=== PATIENT | female | born 1965 | race Two or more races ===

== ENCOUNTER 2018-06-13 13:01 | Emergency (ER) | payer OTHER ==
[2018-06-13 13:15] VITALS: BMI 31.1
--- NOTE | 2018-06-13 13:47 | PDOC ---
History of Present Illness - General Chief Complaint: Pain Stated Complaint: PAIN (PCP SENT) History Source: Patient Exam Limitations: No Limitations - History of Present Illness Initial Comments: 06/13/18 14:11 53 yo F with a hx of HTN, multiple abdominal surgeries (partial hysterectomy, 3x hernia repairs, BTL), and ovarian cysts presents to the emergency department from her PMD for RLQ pain for 2 weeks with acute worsening since yesterday. Per the patient, she states the pain has been on and off but became constant yesterday. Described as sharp, 7/10, non-radiating, without relief with motrin and tylenol, and has associative dysuria, lower back pain, and nausea. Denies the following: vaginal bleeding/discharge, fever/chills, SOB, diarrhea, hematochezia, melena, and leg pain/swelling. Pmhx: Refer to above Shx: Refer to above Meds: atenolol Allergies: NKDA Social: Denies tobacco, alcohol, and substance abuse Past History - Past Medical History Allergies/Adverse Reactions: Allergies Allergy/AdvReac Type Severity Reaction Status Date / Time No Known Allergies Allergy Verified 06/13/18 13:12 Home Medications: Ambulatory Orders Atenolol [Tenormin -] 25 mg PO BID 06/13/18 Ibuprofen 600 mg PO QID PRN #12 tablet 06/13/18 COPD: No HTN: Yes - Immunization History Immunization Up to Date: Yes - Suicide/Smoking/Psychosocial Hx Smoking History: Never smoked Review of Systems - Review of Systems Able to Perform ROS?: Yes Is the patient limited [place] proficient: No Constitutional: No: Chills, Diaphoresis, Fever, Weakness HEENTM: No: Recent change in vision, Ear Pain, Nose Pain, Throat Pain, Mouth Pain Respiratory: No: Cough, Shortness of Breath, SOB with Exertion, Hemoptysis Cardiac (ROS): No: Chest Pain, Lightheadedness, Palpitations, Syncope, Chest Tightness ABD/GI: Yes: Nausea, Abdominal cramping. No: Constipated, Diarrhea, Poor Appetite, Poor Fluid Intake, Rectal Bleeding, Vomiting, Indigestion, Tarry Stools : Yes: Dysuria. No: Flank Pain, Hematuria, Urgency Musculoskeletal: Yes: Back Pain. No: Joint Pain, Neck Pain Integumentary: No: Rash Neurological: No: Headache, Weakness, Ataxia Psychiatric: No: Stressors Endocrine: No: Unexplained Weight Gain Hematologic/Lymphatic: No: Anemia *Physical Exam - Vital Signs Last Vital Signs Temp Pulse Resp BP Pulse Ox 98.6 F 66 18 138/82 100 06/13/18 13:12 06/13/18 13:12 06/13/18 13:12 06/13/18 13:12 06/13/18 13:12 - Physical Exam General Appearance: Yes: Nourished, Appropriately Dressed, Obese. No: Apparent Distress HEENT: positive: EOMI, JOSE, Normal ENT Inspection, Normal Voice, Symmetrical, TMs Normal, Pharynx Normal, Hearing Grossly Normal. negative: Pale Conjunctivae , Scleral Icterus (R), Scleral Icterus (L), Muffled/Hoarse voice, Hearing Decreased Neck: positive: Trachea midline. negative: Tender, Lymphadenopathy (R), Lymphadenopathy (L), Tender lateral, Tender midline Respiratory/Chest: positive: Lungs Clear, Normal Breath Sounds. negative: Chest Tender, Respiratory Distress, Accessory Muscle Use, Crackles, Rales, Rhonchi, Stridor, Wheezing, Hyperresonant Cardiovascular: positive: Regular Rhythm, Regular Rate, S1, S2. negative: Systolic Murmur Gastrointestinal/Abdominal: positive: Normal Bowel Sounds, Tender (RLQ and LLQ tenderness. Negative referred pain and negative rebound tenderness. negative psoas sign), Flat, Soft. negative: Distended, Rebound Lymphatic: negative: Adenopathy Musculoskeletal: positive: Normal Inspection. negative: CVA Tenderness, CVA Tenderness (R), CVA Tenderness (L) Extremity: positive: Normal Capillary Refill, Normal Inspection, Normal Range of Motion. negative: Tender Integumentary: positive: Normal Color, Dry, Warm. negative: Rash, Swelling Neurologic: positive: wafer batter mixer II-XII NML intact, Fully Oriented, Alert, Normal Mood/ Affect, Normal Response, Motor Strength 5/5 Moderate Sedation - Procedure Monitoring Vital Signs: Procedure Monitoring Vital Signs Temperature 98.6 F 06/13/18 13:12 Pulse Rate 66 06/13/18 13:12 Respiratory Rate 18 06/13/18 13:12 Blood Pressure 138/82 06/13/18 13:12 O2 Sat by Pulse Oximetry (%) 100 06/13/18 13:12 ED Treatment Course - LABORATORY CBC & Chemistry Diagram: 06/13/18 14:30 06/13/18 14:30 Medical Decision Making - Medical Decision Making 53 yo F with a hx of HTN, multiple abdominal surgeries (partial hysterectomy, 3x hernia repairs, BTL), and ovarian cysts presents to the emergency department from her PMD for RLQ pain for 2 weeks with acute worsening since yesterday. Initial vitals; Initial Vital Signs Temp Pulse Resp BP Pulse Ox 98.6 F 66 18 138/82 100 06/13/18 13:12 06/13/18 13:12 06/13/18 13:12 06/13/18 13:12 06/13/18 13:12 Work up: ddx: appendicitis vs colitis vs constipation vs ovarian cyst rupture vs UTI, nephrolithiasis, pyelonephritis. patient was referred to ED by PMD for appendicitis evaluation. given the presentation on PE and hx, possibly could be due to appendicitis. will order the following labs: cbc, cmp, ua, urine culture, abdomen pelvis ct with IV/oral Laboratory Tests 06/13/18 06/13/18 06/13/18 14:30 14:30 14:30 WBC 6.8 RBC 4.76 Hgb 14.2 Hct 44.4 MCV 93.2 MCH 29.7 MCHC 31.9 L RDW 13.3 Plt Count 330 MPV 9.1 Absolute Neuts (auto) 3.5 Neutrophils % 50.7 Lymphocytes % 37.9 Monocytes % 7.5 Eosinophils % 2.7 Basophils % 1.2 Nucleated RBC % 0 Sodium 139 Potassium 5.0 Chloride 106 Carbon Dioxide 26 Anion Gap 8 BUN 12 Creatinine 0.8 Creat Clearance w eGFR > 60 Random Glucose 87 Calcium 9.2 Total Bilirubin 0.4 AST 39 H ALT 57 Alkaline Phosphatase 83 Total Protein 7.9 Albumin 4.3 Urine Color Straw Urine Appearance Clear Urine pH 5.0 Ur Specific Verdi 1.008 L Urine Protein Negative Urine Glucose (UA) Negative Urine Ketones Negative Urine Blood Negative Urine Nitrite Negative Urine Bilirubin Negative Urine Urobilinogen Negative Ur Leukocyte Esterase Negative treated with IV tylenol for pain. ct showed no acute pathologies. labs were within normal limits. patient was reassessed and had reduced pain in the RLQ. patient expressed wishes to be discharged. i explained to the patient the importance of the return precautions given that it could still develop into an appendicitis. patient understood and accepted the plan. I discussed the physical exam findings, ancillary test results, and final diagnoses with the patient. I answered all of the patients questions to their satisfaction. The patient was satisfied with the care received and felt comfortable with the discussed discharge and treatment plan and accepted it. They agreed to follow up with their primary medical physical physician within 24 -72 hours after discharge for follow up care and management. Dispo: Discharge *DC/Admit/Observation/Transfer Diagnosis at time of Disposition: Abdominal pain Qualifiers: Abdominal location: right lower quadrant Qualified Code(s): R10.31 - Right lower quadrant pain - Discharge Dispostion Disposition: HOME Decision to Admit order: No - Prescriptions Prescriptions: Ibuprofen 600 mg PO QID PRN #12 tablet PRN Reason: Pain - Referrals Referrals: Aneesh Laura MD [Primary Care Provider] - - Patient Instructions Printed Discharge Instructions: DI for Abdominal Pain-Adult Additional Instructions: you were seen in the emergency department for abdominal pain, your labs were within normal limits and your CT does not show an infection within the abdomen. your urine was within normal limits. your pain improved significantly while here. you requested to be discharged and I gave you the return precautions verbally. However, I will write them as well. Please return to the emergency department if you have worsening of symptoms or new concerning symptoms such as fever/chills, nausea and vomiting, and blood in the urine and/or stool. Please take the medication as prescribed. Please follow up with your primary medical doctor within 72 hours after discharge for follow up care and management. Thank you. - Post Discharge Activity Forms/Work/School Notes: Back to Work
[2018-06-13] MEDS ORDERED: ACETAMINOPHEN 1000 MG/100 ML VIAL (NON FORMULARY) IVPB ONE (14:02)
[2018-06-13] MEDS ORDERED: ACETAMINOPHEN INJECTION 100 ML IVPB ONE (14:22)
[2018-06-13 14:53] LABS: BASO % 1.2 % (0-2.0); EOS % 2.7 % (0-4.5); HEMATOCRIT 44.4 % (32.4-45.2); HEMOGLOBIN 14.2 GM/dL (10.7-15.3); LYMPH % 37.9 % (8-40); MCH 29.7 pg (25.7-33.7); MCHC 31.9 g/dl (32.0-36.0); MEAN CELL VOLUME 93.2 fl (80-96); MEAN PLT VOLUME 9.1 fl (7.5-11.1); MONO % 7.5 % (3.8-10.2); NEUT % 50.7 % (42.8-82.8); PLATELET COUNT 330 K/MM3 (134-434); RBC 4.76 M/mm3 (3.60-5.2); RDW 13.3 % (11.6-15.6); WHITE BLOOD COUNT 6.8 K/mm3 (4.0-10.0)
[2018-06-13 15:02] LABS: URINE APPEARANCE CLEAR; URINE BILIRUBIN NEGATIVE (<2.0 mg/dL); URINE COLOR STRAW; URINE GLUCOSE (UA) NEGATIVE (NEGATIVE); URINE KETONE NEGATIVE (NEGATIVE); URINE LEUK ESTERASE NEGATIVE (NEGATIVE); URINE NITRITE NEGATIVE (NEGATIVE); URINE PROTEIN NEGATIVE (NEGATIVE); URINE UROBILINOGEN NEGATIVE mg/dL (0.2-1.0)
--- NOTE | 2018-06-13 15:22 | PDOC ---
Attending Attestation - Resident Resident Name: EsperanzaCarson - ED Attending Attestation I have performed the following: I have examined & evaluated the patient, The case was reviewed & discussed with the resident, I agree w/resident's findings & plan, Exceptions are as noted <Anju Gonzalez - Last Filed: 06/13/18 15:22> - HPI HPI: This patient is a 53 year old female with PMHx of HTN, ovarian cysts, who presents with 2 weeks of RLQ pain. She describes the pain as intermittent, but yesterday the pain became constant, 7/10, sharp, non radiating. She states she took Motrin w/ no relief. She also endorses b/l lower back pain, nausea, dysuria. Denies any vaginal bleeding, discharge. Denies any fever or chills. Denies any SOB, diarrhea, hematochezia, melena, and leg pain/swelling. Past surgical Hx: multiple hernia repairs, BTL, partial hysterectomy <Neli Pickard - Last Filed: 06/13/18 15:42>
[2018-06-13 16:28] LABS: ALBUMIN 4.3 g/dl (3.4-5.0); ALK PHOS 83 U/L (45-117); ANION GAP 8 MMOL/L (8-16); BILIRUBIN,TOTAL 0.4 mg/dL (0.2-1); BLOOD UREA NITROGEN 12 mg/dL (7-18); CALCIUM 9.2 mg/dL (8.5-10.1); CHLORIDE 106 mmol/L (98-107); CO2 26 mmol/L (21-32); CREATININE 0.8 mg/dL (0.55-1.3); GLUCOSE,RANDOM 87 mg/dL (74-106); SGOT/AST 39 U/L (15-37); SGPT/ALT 57 U/L (13-61); SODIUM 139 mmol/L (136-145); TOT PROT 7.9 g/dl (6.4-8.2)
[2018-06-13 19:11] VITALS: BP 138/78; PULSE 78; TEMP 98.2
== END 2018-06-13 19:20 | disposition home or self-care (01) ==
LOC: JER 13:01
PROC: 3E033NZ Introduction of Analgesics, Hypnotics, Sedatives into Peripheral Vein, Percutaneous Approach (ICD-10-PCS; principal; 2018-06-13)
DX: R10.31 Right lower quadrant pain (principal); I10 Essential (primary) hypertension
CPT/HCPCS: 36415; 74177-TC; 80053; 81003; 85025; 87086; 96374; 99282-25; J0131

== ENCOUNTER 2020-12-23 04:21 | Day surgery (SDC) | payer OTHER ==
[2020-12-22 18:38] VITALS: BMI 32.9
[2020-12-23] MEDS ORDERED: LIDOCAINE HCL 1% PRESERVATIVE FREE - 30ML VIAL IJ ONE (12:59)
[2020-12-23] MEDS ORDERED: BUPIVACAINE HCL/PF 0.5% (5 MG/ML) 30 ML VIAL IJ ONE (13:00)
[2020-12-23] MEDS ORDERED: ACETAMINOPHEN 325 MG TABLET (FP) PO ONE (13:40)
[2020-12-23] MEDS ORDERED: ACETAMINOPHEN 325 MG TABLET (FP) ONE (13:40)
[2020-12-23 14:34] VITALS: BP 125/70; PULSE 65; TEMP 97.6
== END 2020-12-23 14:20 | disposition home or self-care (01) ==
LOC: JASU-SURG 04:21
PROVIDERS: ATTEND Pain Medicine Pain Medicine
PROC: 3E0U3BZ Introduction of Anesthetic Agent into Joints, Percutaneous Approach (ICD-10-PCS; 2020-12-23)
PROC: 3E0U33Z Introduction of Anti-inflammatory into Joints, Percutaneous Approach (ICD-10-PCS; principal; 2020-12-23 14:00)
DX: M53.3 Sacrococcygeal disorders, not elsewhere classified (principal)
CPT/HCPCS: 76000-TC-FY

== ENCOUNTER 2021-03-22 09:01 | Emergency (ER) | payer OTHER ==
[2021-03-22 09:40] VITALS: BMI 32.5
[2021-03-22] MEDS ORDERED: KETOROLAC TROMETHAMINE 30 MG/1 ML VIAL IM ONE (09:55)
[2021-03-22] MEDS ORDERED: KETOROLAC TROMETHAMINE 30 MG/1 ML VIAL ONE (10:20)
[2021-03-22 16:34] VITALS: BP 142/75; PULSE 82; TEMP 98.1
== END 2021-03-22 16:25 | disposition home or self-care (01) ==
LOC: JER 09:01
PROC: 3E0233Z Introduction of Anti-inflammatory into Muscle, Percutaneous Approach (ICD-10-PCS; principal; 2021-03-22)
DX: S92.901A Unspecified fracture of right foot, initial encounter for closed fracture (principal); M25.512 Pain in left shoulder; W01.0XXA Fall on same level from slipping, tripping and stumbling without subsequent striking against object, initial encounter; Y92.512 Supermarket, store or market as the place of occurrence of the external cause
CPT/HCPCS: 70450-TC; 72125-TC; 72131-TC; 72192-TC; 73030-TC-LT-FY; 73562-TC-RT-FY; 73630-TC-RT-FY; 99285-25

== ENCOUNTER 2021-06-03 11:49 | Emergency (ER) | payer OTHER ==
[2021-06-03 12:11] VITALS: BP 135/95; PULSE 73; TEMP 98; BMI 32.5
[2021-06-03] MEDS ORDERED: LIDOCAINE 5% TOPICAL PATCH TP ONE (12:15)
[2021-06-03] MEDS ORDERED: KETOROLAC TROMETHAMINE 30 MG/1 ML VIAL IVPUSH ONE (12:15)
[2021-06-03] MEDS ORDERED: METHOCARBAMOL 500 MG TABLET PO ONE (12:15)
[2021-06-03 12:46] LABS: HEMATOCRIT 41.1 % (32.4-45.2); HEMOGLOBIN 13.8 GM/dl (10.7-15.3); MCHC 33.6 g/dl (32.0-36.0); MEAN CELL VOLUME 92.3 fl (80-96); MEAN PLT VOLUME 8.8 fl (7.5-11.1); PLATELET COUNT 295 10^3/uL (134-434); RBC 4.46 M/mm3 (3.60-5.2); RDW 12.5 % (11.6-15.6); WHITE BLOOD COUNT 7.7 K/mm3 (4.0-10.8)
[2021-06-03] MEDS ORDERED: METHOCARBAMOL 500 MG TABLET ONE (12:55)
[2021-06-03] MEDS ORDERED: KETOROLAC TROMETHAMINE 30 MG/1 ML VIAL ONE (12:56)
[2021-06-03] MEDS ORDERED: LIDOCAINE 5% TOPICAL PATCH ONE (12:56)
[2021-06-03 12:59] LABS: ALBUMIN 4.2 g/dl (3.4-5.0); BILIRUBIN,TOTAL 0.4 mg/dl (0.2-1); CALCIUM 9.8 mg/dl (8.5-10); CREATININE 0.9 mg/dl (0.55-1.3); TOT PROT 7.4 g/dl (6.4-8.2)
[2021-06-03 13:18] LABS: PLATELET ESTIMATE ADEQUATE
[2021-06-03] MEDS ORDERED: LIDOCAINE PATCH REMOVAL MC SCH (22:00)
== END 2021-06-03 13:43 | disposition home or self-care (01) ==
LOC: FER 11:49
PROC: 3E0333Z Introduction of Anti-inflammatory into Peripheral Vein, Percutaneous Approach (ICD-10-PCS; principal; 2021-06-03)
DX: M79.602 Pain in left arm (principal); R20.2 Paresthesia of skin; R07.9 Chest pain, unspecified
CPT/HCPCS: 36415; 71046-TC-FY; 80053; 82550; 84484; 85025; 93005; 96374; 99284-25

== ENCOUNTER 2021-09-30 17:03 | Emergency (ER) | payer OTHER ==
[2021-09-30 17:26] VITALS: BP 147/92; PULSE 81; TEMP 98.7; BMI 32.7
[2021-09-30] MEDS ORDERED: LIDOCAINE 5% TOPICAL PATCH TP ONE (18:01)
[2021-09-30] MEDS ORDERED: METHOCARBAMOL 500 MG TABLET PO ONE (18:01)
[2021-09-30] MEDS ORDERED: KETOROLAC TROMETHAMINE 30 MG/1 ML VIAL IM ONE (18:01)
[2021-09-30] MEDS ORDERED: LIDOCAINE 5% TOPICAL PATCH ONE (18:27)
[2021-09-30] MEDS ORDERED: METHOCARBAMOL 500 MG TABLET ONE (18:27)
[2021-09-30] MEDS ORDERED: KETOROLAC TROMETHAMINE 30 MG/1 ML VIAL ONE (18:27)
[2021-09-30] MEDS ORDERED: LIDOCAINE PATCH REMOVAL MC SCH (22:00)
== END 2021-09-30 20:36 | disposition home or self-care (01) ==
LOC: FER 17:03
DX: M25.562 Pain in left knee (principal)
CPT/HCPCS: 73560-TC-LT-FY; 93971-TC; 99284-25

== ENCOUNTER 2022-03-27 20:35 | Emergency (ER) | payer OTHER ==
[2022-03-27] MEDS ORDERED: IBUPROFEN 600 MG TABLET (FP) PO ONE ×2 (20:43→20:49)
[2022-03-27] MEDS ORDERED: AMOX TR/POT CLAV 875MG/125MG TABLETS (FP) PO ONE (20:44)
[2022-03-27 20:47] VITALS: BP 167/104; PULSE 75; RESP 18; TEMP 98.1; BMI 32.5
[2022-03-27] MEDS ORDERED: AMOX TR/POT CLAV 875MG/125MG TABLETS (FP) ONE (20:49)
== END 2022-03-27 20:57 | disposition home or self-care (01) ==
LOC: FER 20:35
DX: H60.502 Unspecified acute noninfective otitis externa, left ear (principal); H66.92 Otitis media, unspecified, left ear
CPT/HCPCS: 99283-25

== ENCOUNTER 2022-08-07 04:40 | Day surgery (SDC) | payer OTHER ==
[2022-08-07 09:44] VITALS: RESP 20; BMI 31.2
[2022-08-07 11:12] VITALS: BP 117/83; PULSE 66
[2022-08-07 16:39] VITALS: TEMP 97.2
== END 2022-08-07 11:40 | disposition home or self-care (01) ==
LOC: JASU-ENDO 04:40
PROVIDERS: ATTEND Student in an Organized Health Care Education/Training Program
PROC: 0DBN8ZX Excision of Sigmoid Colon, Via Natural or Artificial Opening Endoscopic, Diagnostic (ICD-10-PCS; principal; 2022-08-07 09:00)
DX: Z12.11 Encounter for screening for malignant neoplasm of colon (principal); D12.5 Benign neoplasm of sigmoid colon; K64.8 Other hemorrhoids
CPT/HCPCS: 88305-TC

== ENCOUNTER 2023-07-26 15:37 | Emergency (ER) | payer OTHER ==
[2023-07-26] MEDS ORDERED: IBUPROFEN 600 MG TABLET (FP) PO ONE ×2 (15:57→16:07)
[2023-07-26 16:02] VITALS: BP 151/93; PULSE 70; RESP 16; TEMP 98.7; BMI 31.8
== END 2023-07-26 16:51 | disposition home or self-care (01) ==
LOC: FER 15:37
DX: S16.1XXA Strain of muscle, fascia and tendon at neck level, initial encounter (principal); S20.212A Contusion of left front wall of thorax, initial encounter; R51.9 Headache, unspecified; M54.2 Cervicalgia; R07.81 Pleurodynia; V49.40XA Driver injured in collision with unspecified motor vehicles in traffic accident, initial encounter; Y93.19 Activity, other involving water and watercraft; Y92.410 Unspecified street and highway as the place of occurrence of the external cause
CPT/HCPCS: 71046-TC-FY; 99283-25